=== PATIENT | male | born 1955 | race Caucasian/White ===

== ENCOUNTER → 2016-08-07 | Outpatient (CLI) | payer OTHER ==
[~2016-08-07] MED LIST: ALLO100T PO; ASPI81TA28 PO; ATOR-24 PO; CARV6.252 PO; CHOL100027 PO; LISIPOW PO; NTRGSL/4 SL; POTA1080 PO
--- NOTE | 2016-08-07 09:50 | DIAGNOSTIC IMAGING REPORT ---
KUB CLINICAL HISTORY: N20.0 [id number] COMPARISON STUDY: 07/29/2015 FINDINGS: There are multiple bilateral renal calculi more numerous on the right. The calculi numbering system 10 on the right, and in excess of 5 on the left. The largest calculus measures approximately 2 mm. These remain similar to the prior study. There is no pathologic bowel dilatation. There are no calcifications suspicious for ureteral calculi. IMPRESSION: Persistent bilateral nephrolithiasis similar to the preceding study. Electronically signed by: Elías Norris M.D. 08/07/2016 9:49 AM Dictated Date/Time: 08/07/2016 9:47 AM
== END | disposition home or self-care (01) ==
LOC: C.RAD 08:57
PROVIDERS: ATTEND Urology
DX: N20.0 Calculus of kidney (principal); R97.20 Elevated prostate specific antigen [PSA]; N41.1 Chronic prostatitis; N40.1 Benign prostatic hyperplasia with lower urinary tract symptoms

== ENCOUNTER → 2016-10-30 | Outpatient (CLI) | payer OTHER ==
[2016-10-30 12:34] LABS: BLOOD UREA NITROGEN 19 mg/dl (7-18); BUN/CREATININE RATIO 14.2 (10-20); CALCIUM 9.2 mg/dl (8.5-10.1); CARBON DIOXIDE 25 mmol/L (21-32); CHLORIDE 108 mmol/L (98-107); GLUCOSE 124 mg/dl (70-99); POTASSIUM 4.2 mmol/L (3.5-5.1); SODIUM 140 mmol/L (136-145)
== END ==
LOC: C.LABBFT 09:42
PROVIDERS: ATTEND Nurse Practitioner Adult Health
DX: N20.0 Calculus of kidney (principal)

== ENCOUNTER → 2017-03-22 | Outpatient (CLI) | payer OTHER ==
--- NOTE | 2017-03-22 09:16 | DIAGNOSTIC IMAGING REPORT ---
KUB CLINICAL HISTORY: N20.0 Nephrolithiasis COMPARISON STUDY: 08/07/2016 FINDINGS: There are multiple bilateral right renal calculi numbering in excess of 8. These remain similar to the prior study. Punctate left renal calculi are also evident. There is no pathologic bowel dilatation. Small pelvic basin calcifications remain similar and likely represent phleboliths. IMPRESSION: Bilateral nephrolithiasis similar to the preceding study. Electronically signed by: Elías Norris M.D. 03/22/2017 9:15 AM Dictated Date/Time: 03/22/2017 9:13 AM
== END | disposition home or self-care (01) ==
LOC: C.LAB 08:42
PROVIDERS: ATTEND Urology
DX: N20.0 Calculus of kidney (principal)